=== PATIENT | female | born 2000 ===

== ENCOUNTER 2022-03-01 18:53 | Emergency (ER) | payer BC ==
[~2022-03-01] VITALS: Ht 160 cm; Wt 48.5 kg
== END 2022-03-01 21:24 | disposition home or self-care (01) ==
LOC: ER 18:53
DX: R00.2 Palpitations (principal)

== ENCOUNTER 2022-03-03 07:13 | Emergency (ER) | payer BC ==
[~2022-03-03] VITALS: Ht 160 cm; Wt 48.5 kg
[2022-03-03] MEDS ORDERED: PROZAC10 MG (07:33)
[2022-03-03] MEDS ORDERED: MIRALAX17 GM (07:33)
[2022-03-03] MEDS ORDERED: PEPCID AC10 MG (07:34)
== END 2022-03-03 09:49 | disposition home or self-care (01) ==
LOC: ER 07:13
DX: R25.1 Tremor, unspecified (principal)